=== PATIENT | female | born 1955 | race Caucasian/White ===

== ENCOUNTER → 2021-11-17 16:16 | Outpatient (CLI) | payer BC, SELFPAY ==
--- NOTE | 2021-11-17 | DI.RAD.S_ITS ---
PROCEDURE: XR HAND LT MIN 3V INDICATIONS: Bilat Hand Pain TECHNIQUE: 3 views of the hand(s) acquired. COMPARISON: [facility], CR, XR HAND RT MIN 3V, 11/17/2021, 16:11. FINDINGS: Bones: No fractures or dislocations. Carpal bones are normally aligned. No suspicious bony lesions. Polyarticular joint space narrowing with periarticular osteophyte formation, most notably in moderate involving the triscaphe joint. No erosive changes. Soft tissues: No suspicious soft tissue calcifications. IMPRESSION: Diffuse joint degeneration, moderate involving the triscaphe joint. Dictated by: Erasmo Bolivar [facility] Interpreted: Debbi Quach MD on 11/17/2021 at 16:52 Transcribed by: YASMIN on 11/17/2021 at 16:53 Approved by: Debbi Quach M.D. on 11/17/2021 at 17:28
--- NOTE | 2021-11-17 | DI.RAD.S_ITS ---
PROCEDURE: XR HAND RT MIN 3V INDICATIONS: Bilat Hand Pain TECHNIQUE: 3 views of the hand(s) acquired. COMPARISON: [facility], CR, XR HAND LT MIN 3V, 11/17/2021, 16:11. FINDINGS: Bones: No fractures or dislocations. Carpal bones are normally aligned. No suspicious bony lesions. Polyarticular joint space narrowing with periarticular osteophyte formation, most notably and severe involving the triscaphe joint. No erosive changes. Soft tissues: No suspicious soft tissue calcifications. IMPRESSION: Diffuse joint degeneration, severe involving the triscaphe joint. Dictated by: Erasmo Bolivar [facility] Interpreted: Debbi Quach MD on 11/17/2021 at 16:52 Transcribed by: YASMIN on 11/17/2021 at 16:52 Approved by: Debbi Quach M.D. on 11/17/2021 at 17:28
[2021-11-17 17:59] LABS: C-Reactive Protein Quant 0.8 mg/dL (<1.0); Uric Acid 4.1 mg/dL (2.5-6.2)
[2021-11-17 18:02] LABS: Rheumatoid Factor < 8.6 IU/mL (<12.0)
[2021-11-17 19:20] LABS: Erythrocyte Sedimentation Rate 8 MM/HR (0-20)
[2021-11-19 16:37] LABS: ANA Screen, IFA Negative (.)
[2021-11-20 00:12] LABS: CCP Antibodies IgG/IgA <1 units (0-19)
== END ==
PROVIDERS: Family Provider Family Medicine; PCP Family Medicine; Referring Provider Family Medicine; Visit Provider Family Medicine
DX: M79.603 Pain in arm, unspecified (principal); M19.042 Primary osteoarthritis, left hand; M19.041 Primary osteoarthritis, right hand
CPT/HCPCS: 36415; 73120; 73130; 84550; 85651; 86038; 86140; 86200; 86430

== ENCOUNTER → 2023-08-12 11:21 | Outpatient (CLI) | payer MEDICARE, OTHER, SELFPAY ==
--- NOTE | 2023-08-12 11:26 | DI.RAD.S_ITS ---
PROCEDURE: XR SACRUM COCCYX MIN 2V INDICATIONS: ACUTE COCCYGEAL PAIN' TECHNIQUE: 3 views of the sacrum and coccyx acquired. COMPARISON: None. FINDINGS: Bones: No fractures or dislocations. Degenerative changes are present within the midportion of the coccyx including intervertebral disc space narrowing and endplate sclerosis. No suspicious bony lesions. Soft tissues: Visualized bowel gas pattern is normal. No suspicious soft tissue densities. IMPRESSION: No acute radiographic findings. If further characterization is warranted, CT or MRI of this region could be used. Degenerative change. Dictated by: Toshia Valadez M.D. on 08/12/2023 at 13:55 Approved by: Toshia aVladez M.D. on 08/12/2023 at 13:56
== END ==
PROVIDERS: Family Provider Family Medicine; PCP Family Medicine; Referring Provider Family Medicine; Visit Provider Family Medicine
DX: M53.3 Sacrococcygeal disorders, not elsewhere classified (principal); M47.818 Spondylosis without myelopathy or radiculopathy, sacral and sacrococcygeal region
CPT/HCPCS: 72220